=== PATIENT | female | born 1950 | race Caucasian/White ===

== ENCOUNTER 2018-10-23 16:11 | Emergency (ER) | payer MEDICARE ==
--- OUTSIDE RECORDS SUMMARY | 2018-10-23 16:15 | XMS REPORT | Continuity of Care Document ---
:1950 External Reference #:[id number] Author Name AndreasJessica argueta Care Team Providers Name Role Phone Mojgan Morales MD Primary Care Physician Unavailable Payers Date Identification Numbers Payment Provider Subscriber Expires: Policy Number: [id number] [facility] Medicare Solutions Eunice Yan 2018 Group Number: [id number] [address] [address] PayID: [id number] [place] [address] Policy Number: [id number] [employer] Eunice Yan PayID: [id number] [address] [place] [address] Advance Directives Description No Information Available Problems Date Description Provider Status Onset: 08/06/2018 Cervical radiculitis Giorgi Baker MD Active Onset: 08/06/2018 Abnormal gait Giorgi Baker MD Active Onset: 08/06/2018 Trigeminal neuralgia Giorgi Baker MD Active Onset: 12/25/2015 Taking medication Addis Villanueva MD Active Onset: 12/25/2015 Lymphedema Addis Villanueva MD Active Onset: 12/25/2015 Dyspnea Addis Villanueva MD Active Onset: 12/25/2015 Cough Addis Villanueva MD Active Family History Date Family Member(s) Observation Comments General Heart Disease Father Heart Disease Mother Peptic Ulcer Siblings 1 brother with Htn Social History Type Date Description Comments Sex Unknown ETOH Use Denies alcohol use Tobacco Use Start: Unknown Patient has never smoked Smoking Status Reviewed: 10/14/18 Patient has never smoked Exercise Type/Frequency Does not exercise Allergies, Adverse Reactions, Alerts Date Description Reaction Status Severity Comments 11/24/2014 Iodinated Diagnostic Agents Active Medications Medication Date Status Form Strength Qnty SIG Indications Ordering Provider Fluticasone 05/06 Active Suspension 50mcg/Act 32gm 1spray J30.9 Addis Propionate each MD Rich nostril twice daily Vitamin D 12/23 Active Tablets 5000Units by mouth everyday Warfarin Sodium Active Tablets 10mg 1 by mouth Unknown / every day Multivitamins Active Capsules 1 by mouth Unknown every day Calcium 600 Active Tablets 600mg 1 by mouth Unknown bid Levocetirizine Active Tablets 5mg 1 every Unknown Dihydrochloride day Gabapentin Active Capsules 300mg 90cap 1 tab Giorgi s three Olivia, times a MD day Omeprazole Active Capsules DR 40mg 1 Tab PO Cannaria , Mojgan Lerner MD Escitalopram Active Tablets 10mg 1 by mouth Unknown Oxalate every day Prednisone 08/18 Hx Tablets 10mg 30tab 30mg daily s for 1 MD Rich - week, 20mg 10/11 daily for 1 week, 10 mg daily for 1 week Prednisone 05/06 Hx Tablets 10mg 14tab 1 by mouth R05 Addis s every day MD Rich - 07/04 Benzonatate 05/06 Hx Capsules 100mg 30cap take one R05 Addis s capsule by MD Rich - mouth 2-3 10/11 daily as needed (taking one time per day per pt) Singulair 12/23 Hx Tablets 10mg 1 by mouth Unknown every day - 01/21 Co Q-10 12/23 Hx Capsules 100mg 1 by mouth Unknown every day - 05/05 Omeprazole 12/[address] 20mg 1 by mouth Unknown every day - 08/05 Losartan Hx Tablets 50mg 1 by mouth Unknown Potassium every day - 05/05 Lipitor Hx Tablets 40mg 1 by mouth Unknown / at bedtime - 05/05 Venlafaxine HCL Hx Tablets ER 37.5mg once daily Unknown ER /0000 24HR - 05/05 Rozina [address] Hx [address] 81mg 1 by mouth Unknown /0000 every day - 12/23 Gabapentin Hx Capsules 400mg 360ca 1 by mouth Maddison /0000 ps every Gnadt, CRANE ENGINEER - morning, 1 12/23 afternoon and 2 every evening Atorvastatin Hx Tablets 40mg 1 by mouth Unknown Calcium /0000 every day - 05/05 Citalopram Hx Solution 10mg 1 tab po Unknown Hydrobromide /0000 qd - 10/11 Warfarin Sodium Hx Tablets 7.5mg 1 by mouth Unknown /0000 every day - 10/14 Immunizations Description No Information Available Vital Signs Date Vital Result Comment 10/14/2018 9:11am Height 61 inches 5'1" Weight 171.25 lb Heart Rate 73 /min BP Systolic Sitting 132 mmHg BP Diastolic Sitting 80 mmHg Pain Level 2 O2 % BldC Oximetry 96 % BMI (Body Mass Index) 32.4 kg/m2 10/12/2018 9:30am Height 61 inches 5'1" Weight 171.00 lb Heart Rate 68 /min BP Systolic 128 mmHg BP Diastolic 88 mmHg BMI (Body Mass Index) 32.3 kg/m2 09/28/2018 9:54am Height 61 inches 5'1" Weight 171.25 lb Heart Rate 64 /min BP Systolic Sitting 150 mmHg Lue regular cuff BP Diastolic Sitting 90 mmHg Lue regular cuff Respiratory Rate 12 /min O2 % BldC Oximetry 96 % BMI (Body Mass Index) 32.4 kg/m2 08/06/2018 9:56am Height 61 inches 5'1" Weight 163.00 lb Heart Rate 78 /min BP Systolic Sitting 140 mmHg BP Diastolic Sitting 68 mmHg Respiratory Rate 16 /min BMI (Body Mass Index) 30.8 kg/m2 07/05/2018 7:46am Height 61 inches 5'1" Weight 164.00 lb Heart Rate 70 /min BP Systolic Sitting 156 mmHg Lue reg cuff BP Diastolic Sitting 88 mmHg Lue reg cuff Respiratory Rate 20 /min O2 % BldC Oximetry 94 % On Ra BMI (Body Mass Index) 31.0 kg/m2 05/06/2018 2:29pm Height 61 inches 5'1" Weight 157.00 lb Heart Rate 84 /min BP Systolic Sitting 118 mmHg BP Diastolic Sitting 86 mmHg Respiratory Rate 14 /min O2 % BldC Oximetry 98 % BMI (Body Mass Index) 29.7 kg/m2 01/23/2016 8:09am Height 61 inches 5'1" Weight 163.00 lb Heart Rate 70 /min BP Systolic 128 mmHg BP Diastolic 68 mmHg Respiratory Rate 14 /min O2 % BldC Oximetry 98 % BMI (Body Mass Index) 30.8 kg/m2 12/25/2015 8:01am Height 61 inches 5'1" Weight 163.00 lb Heart Rate 74 /min BP Systolic 124 mmHg BP Diastolic 76 mmHg Respiratory Rate 14 /min O2 % BldC Oximetry 98 % BMI (Body Mass Index) 30.8 kg/m2 Neck Circumference in inches 14 12/25/2014 9:22am Height 61 inches 5'1" Weight 149.00 lb Heart Rate 72 /min BP Systolic Sitting 120 mmHg BP Diastolic Sitting 78 mmHg Respiratory Rate 16 /min BMI (Body Mass Index) 28.2 kg/m2 11/24/2014 3:31pm Height 61 inches 5'1" Weight 149.00 lb Heart Rate 68 /min BP Systolic Sitting 108 mmHg BP Diastolic Sitting 78 mmHg Respiratory Rate 16 /min BMI (Body Mass Index) 28.2 kg/m2 Results Test Date Facility Test Result H/L Range Note Laboratory test 08/06/2018 [facility] Nuclear AB <1:[address] (Nicole) By Ifa (Negative) [place] [address] Igg [phone] Rheumatoid Factor < 10 IU/mL N <15 Anti Ssa/Ro <0.2 U 2 Anti SSB LA <0.2 U 3 Laboratory test 07/05/2018 [facility] Immunoglobulin E <2.0 kU/ L <=214 [address] (Ige) [place] [address] [phone] Immunoglobulin A (Iga) 93 mg/dL 61 - 356 5 Igg Subclasses 07/05/2018 [facility] Total IgG 418 mg/dL Abnormal 767 - [address] [place] [address] [phone] Immunoglobulin G1 249 mg/dL Abnormal 341 - 894 Immunoglobulin G2 104 mg/dL Abnormal 171 - 632 Immunoglobulin G3 24.5 mg/dL 6 Immunoglobulin G4 8.9 mg/dL 7 Laboratory test 07/05/2018 [facility] Erythrocyte Sed 15 mm/Hr N 0-[address] [place] [address] [phone] C Reactive Protein < 1.00 mg/L N <8.01 Anti Nuclear Antibody 0.1 U 8 Anca Panel For 07/05/2018 [facility] Myeloperoxidase AB < 0.2 U [address] [place] [address] [phone] Proteinase 3 AB < 0.2 U 10 CBC Auto Diff 05/06/2018 [facility] White Blood 5.9 10^3/uL N 3.5-10.[address] [place] [address] [phone] Red Blood Count 4.92 10^6/uL N 4.00-5.40 Hemoglobin 14.7 g/dL N 12.0-16.0 Hematocrit 44 % N 35-47 Mean Corpuscular Volume 90 fL N 80-97 Mean Corpuscular Hemoglobin 30 pg N 27-31 Mean Corpuscular HGB Conc 33 g/dL N 31-36 Red Cell Distribution Width 14 % N 10.5-15 Platelet Count 169 10^3/uL N 150-450 Mean Platelet Volume 10.0 um3 N 7.4-10.4 Abs Neutrophils 3.8 10^3/uL N 1.5-7.7 Abs Lymphocytes 1.5 10^3/uL N 1.0-4.8 Abs Monocytes 0.5 10^3/uL N 0-0.8 Abs Eosinophils 0.1 10^3/uL N 0-0.6 Abs Basophils 0 10^3/uL N 0-0.2 Abs Nucleated RBC 0 10^3/uL Granulocyte % 63.9 % N 38-83 Lymphocyte % 25.6 % N 25-47 Monocyte % 8.3 % High 0-7 Eosinophil % 1.5 % N 0-6 Basophil % 0.7 % N 0-2 Nucleated Red Blood Cells % 0.1 Laboratory test 05/06/2018 [facility] Angiotensin 45 U/L 8 - 53 [address] [place] [address] [phone] Aspergillus Igg Antibodies TNP () 12 Rast [place] 05/06/2018 [facility] Alternaria tenuis <0.35 kU/ L [address] [place] [place] [address] [phone] Cat Epithelium Allergen IgE <0.35 kU/L 14 Cladosporium herbarum IgE <0.35 kU/L 15 Dermatophagoides farinae IgE <0.35 kU/L 16 Dog Dander Allergen IgE <0.35 kU/L 17 [place] Blue (December) Grass IgE <0.35 kU/L 18 [place] Allergen IgE <0.35 kU/L 19 [place] Allergen IgE <0.35 kU/L 20 Common Ragweed () Allerge <0.35 kU/L 21 Faizan Grass Allergen IgE <0.35 kU/L 22 Hypersensitivity 05/06/2018 [facility] Aspergillus 6.1 mg/L < =102 [address] [place] [address] Ab [phone] Micropolyspora faeni IgG Ab <2.0 mg/L <=13.2 24 Thermoactinomyces vulgaris IgG 2.3 mg/L <=23.9 25 Protein 12/27/2015 [facility] Total 70 mg/24h N <167 26, [address] Protein(Pep) Urine (24HR) [place] [address] Urine [phone] Collection Duration 24 h N Urine Volume 1000 mL N Total Protein Concentration 7 mg/dL N Albumin 100 % N Impression See Comment N 28 Anca Panel For 12/25/2015 [facility] Myeloperoxidase AB <0.2 U N [address] [place] [address] [phone] Proteinase 3 AB <0.2 U N 30 Igg Subclasses 12/25/2015 [facility] Total IgG 426 mg/dL Abnormal 767 - [address] [place] [address] [phone] Immunoglobulin G1 277 mg/dL Abnormal 341 - 894 Immunoglobulin G2 81 mg/dL Abnormal 171 - 632 Immunoglobulin G3 21.7 mg/dL N 31 Immunoglobulin G4 7.3 mg/dL N 32 Laboratory test 12/25/2015 [facility] Immunoglobulin A 80 mg/dL N 61 - 356 [address] [place] [address] [phone] Rheumatoid Factor <15 IU/mL N <15 34 Scleroderma AB 12/25/2015 [facility] Scleroderma Ab <0.2 U N 35 (SCL70) [address] [place] [address] [phone] Laboratory test 12/25/2015 [facility] Anti Nuclear 0.1 U N [address] [place] [address] [phone] Complement C3 128 mg/dL N 75 - 175 37 Complement C4a Main Lab Only 2081 ng/mL N 0-2830 38 Comp Metabolic Panel 12/25/2015 [facility] Sodium 138 mmol/L N 133-[address] [place] [address] [phone] Potassium 4.1 mmol/L N 3.5-5.0 Chloride 103 mmol/L N 101-111 Co2 Carbon Dioxide 28 mmol/L N 22-32 Anion Gap 7 mmol/L N 2-11 Glucose 102 mg/dL High 70-100 Blood Urea Nitrogen 15 mg/dL N 6-24 Creatinine 0.73 mg/dL N 0.51-0.95 BUN/Creatinine Ratio 20.5 High 8-20 Calcium 9.3 mg/dL N 8.6-10.3 Total Protein 6.0 g/dL Low 6.4-8.9 Albumin 4.2 g/dL N 3.2-5.2 Globulin 1.8 g/dL Low 2-4 Albumin/Globulin Ratio 2.3 N 1-3 Total Bilirubin 0.90 mg/dL N 0.2-1.0 Alkaline Phosphatase 73 U/L N 34-104 Alt 21 U/L N 7-52 Ast 23 U/L N 13-39 Egfr Non- 80.3 N >60 Egfr 103.2 N >60 39 CBC Auto Diff 12/25/2015 [facility] White Blood 5.7 10^3/uL N 3.5-10.[address] [place] [address] [phone] Red Blood Count 4.89 10^6/uL N 4.0-5.4 Hemoglobin 14.2 g/dL N 12.0-16.0 Hematocrit 44 % N 35-47 Mean Corpuscular Volume 90 fL N 80-97 Mean Corpuscular Hemoglobin 29 pg N 27-31 Mean Corpuscular HGB Conc 32 g/dL N 31-36 Red Cell Distribution Width 14 % N 10.5-15 Platelet Count 201 10^3/uL N 150-450 Mean Platelet Volume 10 um3 N 7.4-10.4 Abs Neutrophils 3.9 10^3/uL N 1.5-7.7 Abs Lymphocytes 1.4 10^3/uL N 1.0-4.8 Abs Monocytes 0.3 10^3/uL N 0-0.8 Abs Eosinophils 0.1 10^3/uL N 0-0.6 Abs Basophils 0 10^3/uL N 0-0.2 Abs Nucleated RBC 0 10^3/uL N Granulocyte % 68.6 % N 38-83 Lymphocyte % 24.0 % Low 25-47 Monocyte % 5.3 % N 1-9 Eosinophil % 1.4 % N 0-6 Basophil % 0.7 % N 0-2 Nucleated Red Blood Cells % 0 N Laboratory test 12/25/2015 [facility] TSH (Thyroid 0.86 N 0.34 -5.[address] [place] [address] Stim Horm) ?IU/[place] [address] [phone] Immunoglobulins 12/25/2015 [facility] Immunoglobulin G TNP N [address] [facility] [place] [address] [phone] Immunoglobulin M 46 mg/dL N 37 - 286 41 1 <1:80 (Negative) REFERENCE VALUE <1:80 (Negative) Test Performed by: [facility] - Millry Miyowa [address] [place] [address] 2 REFERENCE VALUE <1.0 (Negative) Test Performed by: [facility] - [facility] [place] [address] 3 REFERENCE VALUE <1.0 (Negative) Test Performed by: [employer] [facility] - [facility] [place] [address] 4 Test Performed by: [facility] - [address] [address] 5 Test Performed by: [facility] - [address] [address] 6 REFERENCE VALUE 18.4 - 106.0 7 REFERENCE VALUE 2.4 - 121.0 Test Performed by: [facility] - [address] [address] 8 REFERENCE VALUE <=1.0 (Negative) Test Performed by: [facility] - [facility] [email or web address] [address] [place] [address] 9 REFERENCE VALUE <0.4 (Negative) 10 REFERENCE VALUE <0.4 (Negative) Test Performed by: [facility] - [address] [address] 11 Test Performed by: [facility] - [address] [address] 12 Cancelled due to duplicate test on this order Test Performed by: [address] [address] 13 Class 0 (Negative <0.35) 14 Class 0 (Negative <0.35) 15 Class 0 (Negative <0.35) 16 Class 0 (Negative <0.35) Test Performed by: [facility] [employer] [place] [address] 17 Class 0 (Negative <0.35) 18 Class 0 (Negative <0.35) 19 Class 0 (Negative <0.35) 20 Class 0 (Negative <0.35) 21 Class 0 (Negative <0.35) 22 Class 0 (Negative <0.35) 23 ADDITIONAL INFORMATION This test was developed and its performance characteristics determined by [facility] in a manner consistent with CLIA requirements. This test has not been cleared or approved by the U.S. Food and Drug Administration. 24 ADDITIONAL INFORMATION This test was developed using an analyte specific reagent. Its performance characteristics were determined by [facility] in a manner consistent with CLIA requirements. This test has not been cleared or approved by the U.S. Food and Drug Administration. 25 ADDITIONAL INFORMATION This test was developed using an analyte specific reagent. Its performance characteristics were determined by [facility] in a manner consistent with CLIA requirements. This test has not been cleared or approved by the U.S. Food and Drug Administration. Test Performed by: [facility] - [address] [address] 26 24 HOUR URINE COLLECTED FROM 12/26/15 0610 TO 12/27/15 0535 27 ADDITIONAL INFORMATION On 01/30/2014 the total protein assay method changed resulting in approximately a 20% increase in protein values. 28 RESULT: Albumin is the only protein detected. Test Performed by: [facility] - [address] [address] Slice Plug Cutter Operator Helper: Colby Denise II, M.D., Ph.D. 29 REFERENCE VALUE <0.4 (Negative) 30 REFERENCE VALUE <0.4 (Negative) Test Performed by: [place] [address] [employer] Plug Cutter Operator Helper: Colby Denise II, M.D., Ph.D. 31 REFERENCE VALUE 18.4 - 106.0 32 REFERENCE VALUE 2.4 - 121.0 Test Performed by: [place] [address] Slice Plug Cutter Operator Helper: Colby Denise II, M.D., Ph.D. 33 Test Performed by: [place] [address] Slice Plug Cutter Operator Helper: Colby Denise II, M.D., Ph.D. --- 12/26/15 1349 --- IgA previously reported as: Test not performed Immunoglobulins IgG,A,M, S was cancelled on 12/26/2015 at 08:49; Test cancelled by RBS rule <IMMG1> Reason: Test IMMG is cancelled and replaced with Tests IGM and IGA due to being ordered with Test IGGS. 34 Test Performed by: [place] [address] Slice Plug Cutter Operator Helper: Colby Denise II, M.D., Ph.D. 35 REFERENCE VALUE <1.0 (Negative) Test Performed by: [place] [address] Slice Plug Cutter Operator Helper: Colby Denise II, M.D., Ph.D. 36 REFERENCE VALUE <=1.0 (Negative) Test Performed by: [place] [address] Slice Plug Cutter Operator Helper: Colby Denise II, M.D., Ph.D. 37 Test Performed by: [place] [address] Slice Plug Cutter Operator Helper: Colby Denise II, M.D., Ph.D. 38 ADDITIONAL INFORMATION This test uses a kit/reagent designated by the cardiac specialist as "for research use, not for clinical use." The performance characteristics for this test have been validated by [facility] at [facility]. It has not been cleared or approved by the [place] Food and Drug Administration. The results are not intended to be used as the sole means for clinical diagnosis or patient management decisions. This laboratory is certified under the Clinical Laboratory Improvement Amendments of 1988 (CLIA-88) as qualified to perform high complexity clinical laboratory testing. Test Performed by: [facility] [address] [place] [id number] 39 Because ethnic data is not always readily available, this report includes an eGFR for both -Americans and non- Americans. The National Kidney Disease Education Program (NKDEP) does not endorse the use of the MDRD equation for patients that are not between the ages of 18 and 70, are , have extremes of body size, muscle mass, or nutritional status, or are non- or non-. According to the National Kidney Foundation, irrespective of diagnosis, the stage of the disease is based on the level of kidney function: Stage Description GFR(mL/min/1.73 m(2)) 1 Kidney damage with normal or decreased GFR 90 2 Kidney damage with mild decrease in GFR 60-89 3 Moderate decrease in GFR 30-59 4 Severe decrease in GFR 15-29 5 Kidney failure <15 (or dialysis) 40 Immunoglobulins IgG,A,M, S was cancelled on 12/26/2015 at 08:49; Test cancelled by RBS rule <IMMG1> Reason: Test IMMG is cancelled and replaced with Tests IGM and IGA due to being ordered with Test IGGS. Test Performed by: [facility] [place] [address] Slice Plug Cutter Operator Helper: Colby Denise II, M.D., Ph.D. 41 Test Performed by: [facility] [place] [address] Slice Plug Cutter Operator Helper: Colby Denise II, M.D., Ph.D. --- 12/26/15 1349 --- IgM previously reported as: Test not performed Immunoglobulins IgG,A,M, S was cancelled on 12/26/2015 at 08:49; Test cancelled by RBS rule <IMMG1> Reason: Test IMMG is cancelled and replaced with Tests IGM and IGA due to being ordered with Test IGGS. Procedures Date Code Description Status 09/07/2018 83819 Nerve Conduction 09-10 Studies Completed 09/07/2018 03538 Needle Electromyography Complete, Five Or More Muscles Completed Studied 01/15/2016 26568 Bronchospasm Provocation Evalu Completed 01/15/2016 59321 ECHO Transthorasic Realtime 2D W Doppler & Color Flow Hosp Completed 02/13/2013 53630 Treadmill Interp/Report Only Completed 02/13/2013 16192 Stress Test Supervsn W/Out I/R Completed Encounters Type Date Location Provider Dx Diagnosis Office Visit 09/28/2018 [facility] Addis Villanueva MD R05 Cough 10:30a Services Of Social Psychologist K21.9 Gastro-esophageal reflux disease without esophagitis Office Visit 08/06/2018 Neurohospitalist Giorgi Baker, G50.0 Trigeminal 10:00a Clinic neuralgia R26.89 Other abnormalities of gait and mobility M54.12 Radiculopathy, cervical region R94.02 Abnormal brain scan M25.551 Pain in right hip Office Visit 07/05/2018 8:00a [facility] Addis Villanueva MD R05 Cough [facility] Office Visit 05/06/2018 2:30p [facility] Addis Villanueva MD R05 Cough [facility] J30.9 Allergic rhinitis, unspecified Office Visit 01/23/2016 8:30a [facility] Addis Villanueva MD R05 Cough [facility] Office Visit 12/25/2015 8:00a [facility] Addis Villanueva MD R05 Cough [facility] R06.02 Shortness of breath I89.0 Lymphedema, not elsewhere classified Z79.899 Other wafer mounter (current) drug therapy Office Visit 12/25/2014 9:30a [facility] Giorgi Baker, 350.1 Neuralgia [facility] Trigeminal 386.10 Vertigo Peripheral Unspec Office Visit 11/24/2014 3:00p [facility] Giorgi Baker, V41.6 Swallowing & [facility] Mastication Problem V48.4 Sensory Problem Head 784.49 Other Voice And Resonance Disorders 782.0 Skin Sensation Disturbance 787.20 Dysphagia, Unspecified [facility] BRYANNA MMiranda Unspec Hospitalists 401.9 Hypertension Unspec 272.2 Hyperlipidemia Mixed V12.51 History Personal Venous Thromb & Embolism Office Visit 02/13/2013 8:32a [facility] Michael Zhao 786.50 Pain Chest Quoc Gusman Unspec 272.0 Hypercholesterolemia Pure 401.1 Hypertension Benign [facility] BRYANNA MMiranda Unspec Hospitalists 401.9 Hypertension Unspec 272.2 Hyperlipidemia Mixed V12.51 History Personal Venous Thromb & Embolism Plan of Treatment Future Appointment(s):12/17/2018 11:15 am - Giorgi Baker MD at [facility]12/28/2018 9:00 am - Addis Villanueva MD at [facility]10/12/2018 - Giorgi Baker, MDM54.12 Radiculopathy, cervical regionComments:Her facial pain has improved on gabapentin and will continue.Has moderate left carpal tunnel syndrome and discussed that since she is dropping objects, surgery is a consideration but she will prefer not and declined occupational therapy as well.Has cervical radiculopathy by emg and will check mri cspine to make sure there is no cord issues that would explain her gait- her ncv did not show a neuropathy that would explain gait problemsSome of her immunologic workup is pending but other than a slightlyelevated Hgba1c the blood work back is normalFollow up:2 [id number] Trigeminal xqseduouwD19.89 Other abnormalities of gait and mobility
--- OUTSIDE RECORDS SUMMARY | 2018-10-23 16:16 | XMS REPORT | Continuity of Care Document ---
:1950 External Reference #:[id number] Author Name GuanacoLyudmila Care Team Providers Name Role Phone Mojgan Morales MD Primary Care Physician Unavailable Payers Date Identification Numbers Payment Provider Subscriber Expires: Policy Number: [id number] [facility] [employer] Eunice Yan 2018 Group Number: [id number] [address] [address] PayID: [id number] [place] [address] Policy Number: [id number] [employer] Eunice Yan PayID: [id number] [address] [place] [address] Advance Directives Description No Information Available Problems [...] Family Member(s) Observation Comments General Heart Disease Siblings 1 brother with Htn Social History Type Date Description Comments Sex Unknown ETOH Use Denies alcohol use Tobacco Use Start: Unknown Patient has never smoked Smoking Status Reviewed: 09/28/18 Patient has never smoked Exercise Type/Frequency Does not exercise Allergies, Adverse Reactions, Alerts Date Description Reaction Status Severity Comments 11/24/2014 Iodinated Diagnostic Agents Active Medications Medication Date Status Form Strength Qnty SIG Indications Ordering Provider Prednisone 08/18 Active Tablets 10mg 30tab 30mg daily s for 1 MD Rich week, 20mg daily for 1 week, 10 mg daily for 1 week Fluticasone 05/06 Active Suspension 50mcg/Act 32gm 1spray J30.9 Addis each MD Rich nostril twice daily Benzonatate 05/06 Active Capsules 100mg 30cap take one R05 s capsule by MD Rich mouth 2-3 times daily as needed (taking one time per day per pt) Vitamin D 12/23 Active Tablets 5000Units by mouth everyday Warfarin Sodium Active Tablets 10mg 1 by mouth Unknown / every day Multivitamins Active Capsules 1 by mouth Unknown / every day Calcium 600 Active Tablets 600mg 1 by mouth Unknown bid Citalopram Active Solution 10mg 1 tab po Unknown Hydrobromide qd Levocetirizine Active Tablets 5mg 1 every Unknown Dihydrochloride / day Warfarin Sodium Active Tablets 7.5mg 1 by mouth Unknown every day Gabapentin Active Capsules 300mg Take One Unknown Capsule By Mouth Every Day For 1 Week Then Take One Capsule Twice A Day For 1 Week Then One Capsule Three Times A Day as Tolerated Omeprazole Active Capsules DR 40mg Cannariato /0000 , Mojgan Lerner MD Prednisone 05/06 Hx Tablets 10mg 14tab 1 by mouth R05 s every day MD Rich - 07/04 Singulair 12/23 Hx Tablets 10mg 1 by mouth every day - 01/21 Co Q-10 12/23 Hx Capsules 100mg 1 by mouth Unknown every day - 05/05 Omeprazole 12/[address] 20mg 1 by mouth every day - 08/05 Losartan Hx Tablets 50mg 1 by mouth Unknown Potassium 0000 every day - 05/05 Lipitor Hx Tablets 40mg 1 by mouth Unknown / at bedtime - 05/05 Venlafaxine HCL Hx Tablets ER 37.5mg once daily Unknown ER /0000 24HR - 05/05 Rozina Aspirin 00/ Hx Tablets DR 81mg 1 by mouth Unknown /0000 every day - 12/23 Gabapentin 00 Hx Capsules 400mg 360ca 1 by mouth Maddison /0000 ps every Gnadt, [employer] - morning, 1 12/23 afternoon and 2 every evening Atorvastatin 00 Hx Tablets 40mg 1 by mouth Unknown Calcium /0000 every day - 05/05 Immunizations Description No Information Available Vital Signs Date Vital Result Comment 09/28/2018 9:54am Height 61 inches 5'1" Weight [...] Result H/L Range Note Laboratory test 08/06/2018 [facility] Nuclear AB <1:[address] (Nicole) By Ifa (Negative) [place] [address] Igg [phone] Rheumatoid Factor < 10 IU/mL N <15 Anti Ssa/Ro <0.2 U 2 Anti SSB LA <0.2 U 3 Laboratory test 07/05/2018 [facility] Immunoglobulin E <2.0 kU/ L <=[address] (Ige) [place] [address] [phone] Immunoglobulin A (Iga) 93 mg/dL 61 - 356 5 Igg Subclasses 07/05/2018 [facility] Total IgG 418 mg/dL Abnormal 767 - [address] [place] [address] [phone] Immunoglobulin G1 249 mg/dL Abnormal 341 - 894 Immunoglobulin G2 104 mg/dL Abnormal 171 - 632 Immunoglobulin G3 24.5 mg/dL 6 Immunoglobulin G4 8.9 mg/dL 7 Laboratory test 07/05/2018 [facility] Erythrocyte Sed 15 mm/Hr N 0-[address] [place] [address] [phone] C Reactive Protein < 1.00 mg/L N <8.01 Anti Nuclear Antibody 0.1 U 8 Anca Panel For 07/05/2018 [facility] Myeloperoxidase AB < 0.2 U [address] [place] [address] [phone] Proteinase 3 AB < 0.2 U 10 CBC Auto Diff 05/06/2018 [facility] White Blood 5.9 10^3/uL N 3.5-10.[address] [place] [address] [phone] Red Blood Count 4.92 10^6/uL N 4.00-5.40 [...] Blood Cells % 0.1 Laboratory test 05/06/2018 [facility] Angiotensin 45 U/L 8 - 53 [address] [place] [address] [phone] Aspergillus Igg Antibodies TNP () 12 [place] 05/06/2018 [facility] Alternaria tenuis <0.35 kU/ L [address] [place] [place] [address] [phone] Cat Epithelium Allergen IgE <0.35 kU/L 14 Cladosporium herbarum IgE <0.35 kU/L 15 Dermatophagoides farinae IgE <0.35 kU/L 16 Dog Dander Allergen IgE <0.35 kU/L 17 [place] Blue (December) Grass IgE <0.35 kU/L 18 [place] Allergen IgE <0.35 kU/L 19 [place] Allergen IgE <0.35 kU/L 20 Common Ragweed (Short) Allerge <0.35 kU/L 21 Faizan Grass Allergen IgE <0.35 kU/L 22 Hypersensitivity 05/06/2018 [facility] Aspergillus 6.1 mg/L < =102 [address] [place] [address] Ab [phone] Micropolyspora faeni IgG Ab <2.0 mg/L <=13.2 24 Thermoactinomyces vulgaris IgG 2.3 mg/L <=23.9 25 Protein 12/27/2015 [facility] Total 70 mg/24h N <167 26, [address] Protein(Pep) Urine (24HR) [place] [address] Urine [phone] Collection Duration 24 h N Urine Volume 1000 mL N Total Protein Concentration 7 mg/dL N Albumin 100 % N Impression See Comment N 28 Anca Panel For 12/25/2015 [facility] Myeloperoxidase AB <0.2 U N [address] [place] [address] [phone] Proteinase 3 AB <0.2 U N 30 Igg Subclasses 12/25/2015 [facility] Total IgG 426 mg/dL Abnormal 767 - [address] [place] [address] [phone] Immunoglobulin G1 277 mg/dL Abnormal 341 - 894 Immunoglobulin G2 81 mg/dL Abnormal 171 - 632 Immunoglobulin G3 21.7 mg/dL N 31 Immunoglobulin G4 7.3 mg/dL N 32 Laboratory test 12/25/2015 [facility] Immunoglobulin A 80 mg/dL N 61 - 356 [address] [place] [address] [phone] Rheumatoid Factor <15 IU/mL N <15 34 Scleroderma AB 12/25/2015 [facility] Scleroderma Ab <0.2 U N 35 (SCL70) [address] [place] [address] [phone] Comp Metabolic 12/25/2015 [facility] Sodium 138 mmol/L N 133- [address] [place] [address] [phone] Potassium 4.1 mmol/L N 3.5-5.0 Chloride 103 [...] 80.3 N >60 Egfr 103.2 N >60 36 CBC Auto Diff 12/25/2015 [facility] White Blood 5.7 10^3/uL N 3.5-10.[address] [place] [address] [phone] Red Blood Count 4.89 10^6/uL N 4.0-5.4 [...] Cells % 0 N Laboratory test 12/25/2015 [facility] TSH (Thyroid 0.86 N 0.34 -5.[address] Stim Horm) ?IU/[place] [address] [phone] Immunoglobulins 12/25/2015 [facility] Immunoglobulin G TNP N 37 Serum Quant [address] [place] [address] [phone] Immunoglobulin M 46 mg/dL N 37 - 286 38 Laboratory test 12/25/2015 [facility] Anti Nuclear 0.1 U N 39 finding 101 [facility] [place] [address] [phone] Complement C3 128 mg/dL N 75 - 175 40 Complement C4a Main Lab Only 2081 ng/mL N 0-7494 41 1 <1:80 (Negative) REFERENCE VALUE <1:80 (Negative) Test Performed by: [facility] [place] [id number] 2 REFERENCE VALUE <1.0 (Negative) Test Performed by: [facility] [address] [place] [phone] 3 REFERENCE VALUE <1.0 (Negative) Test Performed by: [facility] [place] [address] [place] [address] 4 Test Performed by: [facility] [address] [place] [address] [place] [address] 5 Test Performed by: [facility] [address] [place] [address] 6 REFERENCE VALUE 18.4 - 106.0 7 REFERENCE VALUE 2.4 - 121.0 Test Performed by: [facility] [place] [id number] [phone] REFERENCE VALUE <=1.0 (Negative) Test Performed by: [facility] [address] [place] [address] 9 REFERENCE VALUE <0.4 (Negative) 10 REFERENCE VALUE <0.4 (Negative) Test Performed by: [facility] [address] [place] [address] 11 Test Performed by: [facility] [address] 12 Cancelled due to duplicate test on this order Test Performed by: [place] [address] 13 Class 0 (Negative <0.35) 14 Class 0 (Negative <0.35) 15 Class 0 (Negative <0.35) 16 Class 0 (Negative <0.35) Test Performed by: [facility] [address] [place] [address] 17 Class 0 (Negative <0.35) 18 Class 0 (Negative <0.35) 19 Class 0 (Negative <0.35) 20 Class 0 (Negative <0.35) 21 Class 0 (Negative <0.35) 22 Class 0 (Negative <0.35) 23 ADDITIONAL INFORMATION This test was developed and its performance characteristics determined by [facility] in a manner consistent with CLIA requirements. This test has not been cleared or approved by the U.S. Food and Drug Administration. 24 ADDITIONAL INFORMATION This test was developed using an analyte specific reagent. Its performance characteristics were determined by [facility] in a manner consistent with CLIA requirements. This test has not been cleared or approved by the U.S. Food and Drug Administration. 25 ADDITIONAL INFORMATION This test was developed using an analyte specific reagent. Its performance characteristics were determined by [facility] in a manner consistent with CLIA requirements. This test has not been cleared or approved by the U.S. Food and Drug Administration. Test Performed by: [place] [id number] 24 HOUR URINE COLLECTED FROM 12/26/15 0610 TO 12/27/15 0535 27 ADDITIONAL INFORMATION On 01/30/2014 the total protein assay method changed resulting in approximately a 20% increase in protein values. 28 RESULT: Albumin is the only protein detected. Test Performed by: [place] [address] Leaf Coverer: Colby Denise II, M.D., Ph.D. 29 REFERENCE VALUE <0.4 (Negative) 30 REFERENCE VALUE <0.4 (Negative) Test Performed by: [address] [address] Leaf Coverer: Colby Denise II, M.D., Ph.D. 31 REFERENCE VALUE 18.4 - 106.0 32 REFERENCE VALUE 2.4 - 121.0 Test Performed by: [place] [address] Leaf Coverer: Cloby Denise II, M.D., Ph.D. 33 Test Performed by: [place] [address] Leaf Coverer: Colby Denise II, M.D., Ph.D. --- 12/26/15 1349 --- IgA previously reported as: Test not performed Immunoglobulins IgG,A,M, S was cancelled on 12/26/2015 at 08:49; Test cancelled by RBS rule <IMMG1> Reason: Test IMMG is cancelled and replaced with Tests IGM and IGA due to being ordered with Test IGGS. 34 Test Performed by: [place] [address] Leaf Coverer: Colby Denise II, M.D., Ph.D. 35 REFERENCE VALUE <1.0 (Negative) Test [place]formed [place]: [place] [address] Leaf Coverer: Colby Denise II, M.D., Ph.D. 36 Because ethnic data is not always readily [...] 15-29 5 Kidney failure <15 (or dialysis) 37 Immunoglobulins IgG,A,M, S was cancelled on 12/26/2015 at 08:49; Test cancelled by RBS rule <IMMG1> Reason: Test IMMG is cancelled and replaced with Tests IGM and IGA due to being ordered with Test IGGS. Test Performed by: [place] [address] Leaf Coverer: Colby Denise II, M.D., Ph.D. 38 Test Performed by: [place] [address] Leaf Coverer: Colby Denise II, M.D., Ph.D. --- 12/26/15 1349 --- IgM previously reported as: Test not performed Immunoglobulins IgG,A,M, S was cancelled on 12/26/2015 at 08:49; Test cancelled by RBS rule <IMMG1> Reason: Test IMMG is cancelled and replaced with Tests IGM and IGA due to being ordered with Test IGGS. 39 REFERENCE VALUE <=1.0 (Negative) Test Performed by: [place] [address] Leaf Coverer: Colby Denise II, M.D., Ph.D. 40 Test Performed by: [place] [address] Leaf Coverer: Colby Denise II, M.D., Ph.D. 41 ADDITIONAL INFORMATION This test uses a kit/reagent designated by the silvering applicator as "for research use, not for clinical use." The performance characteristics for this test have been validated by [facility] at [facility]. It has not been cleared or approved by the US Food and Drug Administration. The results are not intended to be used as the sole means for clinical diagnosis or patient management decisions. This laboratory is certified under the Clinical Laboratory Improvement Amendments of 1988 (CLIA-88) as qualified to perform high complexity clinical laboratory testing. 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 R26.89 Other abnormalities of gait and mobility M54.12 Radiculopathy, cervical region R94.02 Abnormal brain scan M25.551 Pain in right hip Office Visit 07/05/2018 8:00a [facility] Adids Villanueva MD R05 [facility] Office Visit 05/06/2018 2:30p [facility] Addis Villanueva MD R05 [facility] J30.9 Allergic rhinitis, unspecified Office Visit 01/23/2016 8:30a [facility] Addis Villanueva MD R05 [facility] Office Visit 12/25/2015 8:00a [facility] Addis Villanueva MD R05 [facility] R06.02 Shortness of breath I89.0 Lymphedema, not elsewhere classified Z79.899 Other long-term (current) drug therapy Office Visit 12/25/2014 9:30a [facility] Giorgi Baker, 350.1 [facility] Trigeminal 386.10 Vertigo Peripheral Unspec Office Visit 11/24/2014 3:00p [facility] Giorgi Baker, V41.6 [facility] Mastication Problem V48.4 Sensory Problem Head 784.49 Other Voice And Resonance Disorders 782.0 Skin Sensation Disturbance 787.20 Dysphagia, Unspecified Office Visit 02/13/2013 2:48p [facility] 786.50 [facility],jacqui GOULD M.D. Unspec Hospitalists 401.9 Hypertension Unspec 272.2 Hyperlipidemia Mixed V12.51 History Personal Venous Thromb & Embolism Office Visit 02/13/2013 8:32a [facility] Michael Zhao 786.50 Pain Chest Quoc Gusman Unspec 272.0 Hypercholesterolemia Pure 401.1 Hypertension Benign Office Visit 02/12/2013 2:48p [facility] 786.50 [facility] Chest [facility]oc,pc IIBlank. Unspec Hospitalists 401.9 Hypertension Unspec 272.2 Hyperlipidemia Mixed V12.51 History Personal Venous Thromb & Embolism Plan of Treatment Future Appointment(s):12/28/2018 9:00 am - Addis Villanueva MD at [facility]10/14/2018 9:00 am - Anthony Riddle M.D. at [facility]10/12/2018 9:30 am - Giorgi Baker MD at [facility] [id number]/28/2018 - Addis Villanueva, MDR05 CoughFollow up:3 nnrvgbU46.9 Gastro-esophageal reflux disease without esophagitis
[2018-10-23 16:22] VITALS: BP 160/92
--- NOTE | 2018-10-23 17:08 | UC ---
Lower Extremity/Ankle HPI - HPI Summary HPI Summary: C/O right lower leg pain with swelling. H/O DVT. Recent INR was low at 1.5 - History of Current Complaint Chief Complaint: UCLowerExtremity Stated Complaint: R LEG COMPLAINT Time Seen by Provider: 10/23/18 16:58 Hx Obtained From: Patient Onset/Duration: Sudden Onset, Lasting Days - 2, Worse Since - last Severity Initially: Mild Severity Currently: Moderate Pain Intensity: 6 Aggravating Factor(s): Standing, Ambulation Alleviating Factor(s): Rest, Elevation Able to Bear Weight: Yes - Risk Factors DVT Risk Factors: Prior DVT - Allergies/Home Medications Allergies/Adverse Reactions: Allergies Allergy/AdvReac Type Severity Reaction Status Date / Time iodine AdvReac Mild GI Upset Verified 10/23/18 16:22 Home Medications: Home Medications Cholecalciferol TAB* [Vitamin D TAB*] 10/23/18 [History] Escitalopram * [Lexapro *] 20 mg PO DAILY 10/23/18 [History Confirmed 10/23/18] Gabapentin CAP(*) [Neurontin 300 CAP(*)] 300 mg PO TID 10/23/18 [History Confirmed 10/23/18] Omeprazole 40 mg PO DAILY 10/23/18 [History Confirmed 10/23/18] Warfarin TAB(*) [Coumadin TAB(*)] 5 mg PO DAILY PRN 10/23/18 [History Confirmed 10/23/18] PMH/Surg Hx/FS Hx/Imm Hx Cardiovascular History: Deep Vein Thrombosis, Other - SVT Other History Of: Anticoagulant Therapy - Surgical History Surgical History: Yes Surgery Procedure, Year, and Place: TUBAL LIGATION,. OVARIAN REMOVAL,. hysterectomy,. cardiac cath 2012 (NO STENTS),. tonsillectomy,. left foot, ABLATION FOR SVT - Family History Known Family History: Positive: Cardiac Disease, Hypertension Negative: Diabetes - Social History Occupation: Retired Lives: With Family Alcohol Use: None Substance Use Type: None Smoking Status (MU): Never Smoked Tobacco - Immunization History Most Recent Influenza Vaccination: never had Most Recent Tetanus Shot: in 2002 Review of Systems All Other Systems Reviewed And Are Negative: Yes Respiratory: Positive: Cough Musculoskeletal: Positive: Calf Tenderness - right, Edema - right > left Is Patient Immunocompromised?: No Physical Exam Triage Information Reviewed: Yes Appearance: Well-Appearing, Well-Nourished, Pain Distress - mild Vital Signs: Initial Vital Signs Temp 98.2 F 10/23/18 16:13 Pulse 84 10/23/18 16:13 Resp 16 10/23/18 16:13 BP 160/92 10/23/18 16:13 Pulse Ox 99 10/23/18 16:13 Vital Signs Reviewed: Yes Eyes: Positive: Conjunctiva Clear Neck exam: Normal Respiratory: Positive: Wheezing - expiratory wheeze with coughing. Cardiovascular Exam: Normal Musculoskeletal: Positive: Edema @ - bilateral LE Right > Left 3+/ 2+, Other: - positive homans right leg. Neurological Exam: Normal Psychological Exam: Normal Skin Exam: Normal Lower Extremity Course/Dx - Differential Dx/Diagnosis Differential Diagnosis/HQI/PQRI: Bursitis, Cellulitis, Compartment Syndrome Provider Diagnosis: Right leg pain, Edema extremities, Wheezing - Physician Notifications Discussed Patient Care With: Giorgi Ellington Time Discussed With Above Provider: 17:18 Instructed by Provider To: Transfer - to [facility]. Will need doppler, r/o DVT Discharge - Sign-Out/Discharge Documenting (check all that apply): Patient Departure All imaging exams completed and their final reports reviewed: No Studies - Discharge Plan Condition: Stable Disposition: HOME-RECOMMEND TO ED Prescriptions: Montelukast Sodium TAB* [Singulair 10 MG TAB*] 10 mg PO BEDTIME #30 tab Patient Education Materials: Leg Edema (ED), Deep Vein Thrombosis (ED) Referrals: Mojgan Morales MD [Primary Care Provider] - Additional Instructions: PLEASE TO STRAIGHT TO THE ER. - Billing Disposition and Condition Condition: STABLE Disposition: Home-Recommend to ED
== END 2018-10-23 17:28 | disposition home health service (06) ==
LOC: UCEAST 16:11
DX: M79.661 Pain in right lower leg (principal); R60.0 Localized edema; R06.2 Wheezing; Z86.718 Personal history of other venous thrombosis and embolism; Z79.01 Long term (current) use of anticoagulants; Z91.09 Other allergy status, other than to drugs and biological substances
CPT/HCPCS: 99212; G0463

== ENCOUNTER 2019-02-20 11:19 | Emergency (ER) | payer MEDICARE ==
[2019-02-20 11:24] VITALS: BP 122/65
[2019-02-20] MEDS ORDERED: Lidocaine 1% MPF ** 5 ML VIAL INJ ONE (12:07)
--- NOTE | 2019-02-20 12:09 | UC ---
Laceration HPI - HPI Summary HPI Summary: Today cut her L ring finger on ana cristina and is bleeding. She reports feeling ' woozy' b/c of looking at her own blood. currently on coumadin. - History Of Current Complaint Chief Complaint: UCLaceration Stated Complaint: LT HAND LAC Time Seen by Provider: 02/20/19 11:31 Hx Obtained From: Patient Laceration Location: Finger - L ring Pain Intensity: 8 - Allergies/Home Medications Allergies/Adverse Reactions: Allergies Allergy/AdvReac Type Severity Reaction Status Date / Time iodine AdvReac Mild GI Upset Verified 02/20/19 11:25 PMH/Surg Hx/FS Hx/Imm Hx Previously Healthy: Yes Cardiovascular History: Cardiac Disease, Hypertension, Deep Vein Thrombosis - history of/on coumadin Other History Of: Anticoagulant Therapy - Surgical History Surgical History: Yes Surgery Procedure, Year, and Place: TUBAL LIGATION,. OVARIAN REMOVAL,. hysterectomy,. cardiac cath 2012 (NO STENTS),. tonsillectomy,. left foot, ABLATION FOR SVT - Family History Known Family History: Positive: Cardiac Disease, Hypertension Negative: Diabetes - Social History Alcohol Use: None Substance Use Type: None Smoking Status (MU): Never Smoked Tobacco - Immunization History Most Recent Influenza Vaccination: never had Most Recent Tetanus Shot: in 2002 Review of Systems All Other Systems Reviewed And Are Negative: Yes Constitutional: Negative: Fever Skin: Positive: Other - laceration/bleeding L ring finger Respiratory: Positive: Negative Cardiovascular: Positive: Negative Physical Exam Triage Information Reviewed: Yes Completion Of Physical Exam Limited Due To: Extremis Vital Signs: Initial Vital Signs Temp 98.2 F 02/20/19 11:21 Pulse 61 02/20/19 11:21 Resp 18 02/20/19 11:21 BP 122/65 02/20/19 11:21 Pulse Ox 97 02/20/19 11:21 Vital Signs Reviewed: Yes Respiratory Exam: Normal Cardiovascular Exam: Normal Skin: Positive: Significant Lesion(s) - laceration aprox 5 cm on L ring finger, active bleeding but able to minimize. good brachial pulses in L hand, brisk cap refill and good ROM of L ring finger. Laceration Repair - Laceration Repair 1 Description: Irregular Laceration Size After Repair: Length (cm) - 5 Contamination/FB Removal: cleansed and irrigated Anesthesia Used: 1.0% Lido Cleansing Completed Via Routine Prep: Yes Closure Material: Skin Adhesive Closure Method: Single Layer - 3 sutures Suture Of: SQ Suture Type: Nylon Diagnostics - Radiology No standard instances Radiology Interpretation Completed By: Radiologist Summary of Radiographic Findings: IMPRESSION: 1. Left fourth digit laceration. There is no radiopaque foreign body. 2. Suspected minimally displaced fracture through the tuft of the left fourth distal. phalanx. Laceration Course/Dx - Course/Dx Course Of Treatment: L ring finger laceration; irregular from cutting ana cristina today. Pt on coumadin. L ring finger was cleansed,irrigated. XRAY showed mao fx. We anesthetized using 1% lido with digital block. Was able to secure 3 sutures using 4-0 nylon. Needed skin adhesive at sites of wound. cleaned and placed in finger splint. - Differential Dx - Laceration/Wound Differental Diagnoses: Fracture, Laceration, Tendon Laceration - Diagnosis Provider Diagnosis: Laceration, Closed fracture of tuft of distal phalanx of finger Discharge - Sign-Out/Discharge Documenting (check all that apply): Patient Departure All imaging exams completed and their final reports reviewed: Yes - Discharge Plan Condition: Good Disposition: HOME Prescriptions: Cephalexin CAP* [Keflex CAP*] 500 mg PO BID 14 Days #28 cap Patient Education Materials: Finger Fracture (ED) Referrals: Marilyn Hwang MD [Medical Doctor] - Additional Instructions: Please follow up with Orthopedic. Please have suture removed in 10-12 days - Billing Disposition and Condition Condition: GOOD Disposition: Home - Attestation Statements Provider Attestation: This patient was not seen by me. I was available to consult. RITA
== END 2019-02-20 13:29 | disposition home or self-care (01) ==
LOC: UCEAST 11:19
DX: S61.215A Laceration without foreign body of left ring finger without damage to nail, initial encounter (principal); S62.635A Displaced fracture of distal phalanx of left ring finger, initial encounter for closed fracture; W27.8XXA Contact with other nonpowered hand tool, initial encounter; Y92.9 Unspecified place or not applicable; Z86.718 Personal history of other venous thrombosis and embolism; Z79.01 Long term (current) use of anticoagulants
CPT/HCPCS: 12001; 73140; 99212; G0463